=== PATIENT | male | born 1990 | race Caucasian/White ===

== ENCOUNTER 2018-08-07 04:03 | Inpatient (IN) ==
[2018-08-07 04:47] LABS: Baso % (Auto) 0.5 % (0.0-2.0); Eos # (Auto) 0.1 th/mm3 (0.0-0.4); Eos % (Auto) 1.2 % (0.0-4.0); Hematocrit 42.5 % (39.0-51.0); Hemoglobin 14.9 gm/dL (13.0-17.0); Lymph # (Auto) 1.6 th/mm3 (1.0-4.8); Lymph % (Auto) 24.1 % (9.0-44.0); Mean Corpuscular Hemoglobin 31.1 pg (27.0-34.0); Mean Platelet Volume 9.2 fL (7.0-11.0); Mono # (Auto) 0.7 th/mm3 (0.0-0.9); Mono % (Auto) 10.3 % (0.0-8.0); Neut # (Auto) 4.2 th/mm3 (1.8-7.7); Neut % (Auto) 63.9 % (16.0-70.0); Platelet Count 254 th/mm3 (150-450); Red Blood Count 4.78 mil/mm3 (4.50-5.90); Red Cell Distribution Width 13.9 % (11.6-17.2); White Blood Count 6.6 th/mm3 (4.0-11.0)
[2018-08-07 04:57] LABS: INR 1.1 Ratio
--- NOTE | 2018-08-07 05:05 | ED ---
HPI General Chief complaint: Overdose Stated complaint: Medical Time Seen by Provider: 08/07/18 04:13 Source: patient Mode of arrival: EMS Limitations: no limitations History of Present Illness HPI narrative: The patient is a 28 year old male who presents to the [facility] emergency department with a history of accidentally overdosing on heroin the patient reports that he had been doing well on Subutex, however a week ago he relapsed. He denies using more heroin than usual, however he was noted to be unresponsive, and ambulance services were called. The patient was noted to have pinpoint pupils and diminished respiratory rate. The patient was bagged while IV access was obtained in his left EJ and then the patient was given 0.8 mg of Narcan IV. The patient became more awake and alert. The patient in route to this facility had one episode of vomiting that consisted of bright red blood. The patient reports that recently he has been sick with an upper respiratory infection. He reports that other family members have had a similar illness. He denies having any chest pain, chest pressure, or shortness of breath associated with this. He denies having any vomiting or diarrhea prior to this. He denies having any blood in his stool or black or tarry stools. On review of systems otherwise, the patient denies having any known recent fevers, neck pain, abdominal pain, diarrhea, urinary symptoms, or neurologic symptoms. Related Data Home Medications Medication Instructions Recorded Confirmed buprenorphine HCl 8 mg SUBLINGUAL DAILY 08/07/18 08/07/18 Allergies Allergy/AdvReac Type Severity Reaction Status Date / Time No Known Allergies Allergy Verified 08/07/18 04:04 Review of Systems ROS: all other systems reviewed are negative [facility] Medical History Medical History Hepatitis C (Acute) Patient denies medical problems (Acute) Social History Social History Substance History: Active Abuse Smoking Status: Current every day smoker Tobacco Type: Cigarettes How Often Do You Have a Drink Containing Alcohol: Never Recent Travel in [facility] within the Last 8 Weeks: No Recent Out of Country Travel within the Last 8 Weeks: No Substance Abuse Detail Heroin: Substance Use Status: Active Methamphetamine: Substance Use Status: Active Immunization History Tetanus Immunization: Unsure Exam Narrative Exam Narrative: The patient on my arrival to the room is lying flat well and ultrasound-guided IVs being placed. The patient's O2 saturation on pulse oximetry on supplemental nasal cannula O2 is noted to be down into the 70s with a good waveform. The patient is awake and conversive. The patient appears to be in no respiratory distress. The patient was placed on a nonrebreather mask and his O2 saturation came up to 99-100%. Const General: cooperative, no acute distress and well developed Nutritional Appearance: well nourished Orientation: alert, awake and oriented x3 [facility] Head: normocephalic and atraumatic Nose: no nasal discharge and no epistaxis Mouth: moist mucous membranes Throat: posterior oropharynx normal and uvula midline Eyes Sclera: normal sclerae Pupils: PERRL Neck Neck: trachea midline and no JVD Resp Effort & Inspection: no use of accessory muscles Auscultation: no crackles, no rales and rhonchi (Scattered rhonchi that clear with coughing bilaterally.) Cardio Rate: tachycardic (Sinus tachycardia in the 1 teens, no pulse deficits to the extremities on simultaneous auscultation and palpation of his radial artery.) Rhythm: regular rhythm Heart Sounds: no murmurs GI Inspection: non-distended Palpation: soft, no hepatosplenomegaly, no guarding, not rigid and nontender Auscultation: normal bowel sounds Back/Spine/Pelvis Back: no CVA tenderness Skin General: dry skin (warm) Neuro General: alert, awake, oriented x3 and other (Grossly nonfocal.) Speech: speech normal Motor: no movement abnormalities noted Extrem General: normal to inspection (2+ pulses), no calf tenderness, no clubbing, no cyanosis and no edema Psych Mood: congruent mood Affect: normal affect Judgment: limited Course Initial Documented Vital Signs Temperature 98.4 F 08/07/18 04:04 Pulse Rate 117 H 08/07/18 04:04 Respiratory Rate 16 08/07/18 04:04 Blood Pressure 118/74 08/07/18 04:04 Pulse Oximetry 76 L 08/07/18 04:04 Last Documented Vital Signs Temperature 98.1 F 08/07/18 12:00 Pulse Rate 103 H 08/07/18 16:01 Respiratory Rate 29 H 08/07/18 16:01 Blood Pressure 133/82 08/07/18 16:01 Pulse Oximetry 95 08/07/18 16:01 Critical Care Time Critical Care Time: Yes Total Critical Care Time: 36 Attestation: Aggregate critical care time was 36 minutes. Time to perform other separately billable procedures was not included in the critical care time. My time did not include minutes spent treating any other patients simultaneously or on activities that did not directly contribute to the patient's treatment. The services I provided to this patient were to treat and/or prevent clinically significant deterioration that could result in: Respiratory failure, versus cardiovascular collapse, versus hypoxic brain injury I provided critical care services requiring my management, as noted below: Chart data review, documentation time, medication orders and management, vital sign assessments/reviewing monitor data, ordering and reviewing lab tests, ordering and interpreting/reviewing x-rays and diagnostic studies, care of the patient and discussion of the patient with the admitting physicians. Medical Decision Making MDM Narrative Medical decision making narrative: During the course of the patient's emergency department visit, the patient's history, examination, and differential diagnosis were reviewed with the patient. The patient was placed on a manager monitoring with oximetry and frequent blood pressure monitoring. The patient had IV access obtained and blood work sent for analysis. A diagnostic evaluation was started regarding the patient's accidental heroin overdose associated with hypoxemia on room air. The patient was initially provided supplemental oxygen by nonrebreather mask. The patient's O2 saturation quickly came up to 98-100% on nonrebreather. The patient was started on normal saline IV fluids. Diagnostic studies are remarkable for a normal white count of 6.6, hemoglobin 14.9, platelets 254 with 10.3 monocytes, PT PTT within normal limits, d-dimer is elevated at 6.5, CTA to rule out PE was ordered, chemistry is remarkable for potassium 3.2, creatinine 1.31, GFR 65, glucose 76, serum osmolality 307, magnesium 2.5, troponin I less than 0.02, lipase within normal limits, BNP within normal limits. Urine drug screen is positive for amphetamines. A chest x-ray reveals bilateral upper lobe consolidation, CTA to rule out PE shows no evidence of pulmonary embolism, dense airspace consolidation in bilateral upper lobes and the superior segment of both lower lobes. Given the patient's infiltrates on chest x-ray the patient was covered with Rocephin, Zithromax, and Flagyl for suspected possible aspiration. The patient was monitored closely for any recurrent declines and respiratory effort and rate or decrease in oxygenation. The patient's case including history, pertinent physical examination findings, and laboratory studies were discussed with Dr. Fernando, the polysomnography tech. It was agreed that the patient would be admitted to the polysomnography tech's service. The patient's results were discussed with the patient, including the plan of care. I explained that further testing and/ or monitoring is indicated based on the patient's history, examination, and/ or laboratory findings. Therefore, I recommended admission for additional evaluation. The patient expressed understanding and was agreeable with this plan. The patient was admitted to the hospital in guarded condition and sent to a bed under the care of the polysomnography tech's service. Medical Screen Exam Complete: Yes Emergency Medical Condition: Yes Differential Diagnosis Differential Diagnosis: Intentional versus unintentional overdose, versus noncardiogenic pulmonary edema, versus aspiration, versus pneumonia Medical Records Medical records reviewed: Yes I reviewed the patient's medical records. Lab Data Lab results reviewed: Yes I reviewed the patient's lab results. Result diagrams: 08/07/18 04:34 08/07/18 04:34 Lab Results 08/07/18 08/07/18 08/07/18 Range/Units 04:20 04:34 04:34 WBC 6.6 (4.0-11.0) th/mm3 RBC 4.78 (4.50-5.90) mil/mm3 Hgb 14.9 (13.0-17.0) gm/dL Hct 42.5 (39.0-51.0) % MCV 89.0 (80.0-100.0) fL MCH 31.1 (27.0-34.0) pg MCHC 35.0 (32.0-36.0) % RDW 13.9 (11.6-17.2) % Plt Count 254 (150-450) th/mm3 MPV 9.2 (7.0-11.0) fL Neut % (Auto) 63.9 (16.0-70.0) % Lymph % (Auto) 24.1 (9.0-44.0) % [place] % (Auto) 10.3 H (0.0-8.0) % Eos % (Auto) 1.2 (0.0-4.0) % Baso % (Auto) 0.5 (0.0-2.0) % Neut # (Auto) 4.2 (1.8-7.7) th/mm3 Lymph # (Auto) 1.6 (1.0-4.8) th/mm3 [place] # (Auto) 0.7 (0.0-0.9) th/mm3 Eos # (Auto) 0.1 (0.0-0.4) th/mm3 Baso # (Auto) 0.0 (0.0-0.2) th/mm3 WBC Differential . Differential Comment Auto diff final PT 11.0 (9.8-11.6) sec INR 1.1 Ratio APTT 26.0 (23.4-31.7) sec D-Dimer Quant (PE/DVT) (0.00-0.50) mg/L FEU Sodium (136-145) meq/L Potassium (3.5-5.1) meq/L Chloride (98-107) meq/L Carbon Dioxide (21.0-32.0) meq/L Anion Gap (5-15) meq/L BUN (7-18) mg/dL Creatinine (0.60-1.30) mg/dL Estimated GFR (>89) mL/min POC Glucose 80 (68-110) mg/dl Random Glucose (74-106) mg/dL Osmolality (275-295) mosm/kg Calcium (8.5-10.1) mg/dL Magnesium (1.5-2.5) mg/dL Total Bilirubin (0.2-1.0) mg/dL AST (15-37) U/L ALT (12-78) U/L Alkaline Phosphatase (45-117) U/L Troponin I (0.02-0.05) ng/mL B-Natriuretic Peptide (0-100) pg/mL Total Protein (6.4-8.2) g/dL Albumin (3.4-5.0) g/dL Lipase (73-393) U/L Nasal Screen MRSA (PCR) (Negative) Urine Opiates Screen (Neg) Ur Barbiturates Screen (Neg) Ur Amphetamines Screen (Neg) U Benzodiazepines Scrn (Neg) Urine Cocaine Screen (Neg) U Cannabinoids Screen (Neg) 08/07/18 08/07/18 08/07/18 Range/Units 04:34 04:34 04:34 WBC (4.0-11.0) th/mm3 RBC (4.50-5.90) mil/mm3 Hgb (13.0-17.0) gm/dL Hct (39.0-51.0) % MCV (80.0-100.0) fL MCH (27.0-34.0) pg MCHC (32.0-36.0) % RDW (11.6-17.2) % Plt Count (150-450) th/mm3 MPV (7.0-11.0) fL Neut % (Auto) (16.0-70.0) % Lymph % (Auto) (9.0-44.0) % [place] % (Auto) (0.0-8.0) % Eos % (Auto) (0.0-4.0) % Baso % (Auto) (0.0-2.0) % Neut # (Auto) (1.8-7.7) th/mm3 Lymph # (Auto) (1.0-4.8) th/mm3 [place] # (Auto) (0.0-0.9) th/mm3 Eos # (Auto) (0.0-0.4) th/mm3 Baso # (Auto) (0.0-0.2) th/mm3 WBC Differential Differential Comment PT (9.8-11.6) sec INR Ratio APTT (23.4-31.7) sec D-Dimer Quant (PE/DVT) 6.50 H (0.00-0.50) mg/L FEU Sodium 141 (136-145) meq/L Potassium 3.2 L (3.5-5.1) meq/L Chloride 103 (98-107) meq/L Carbon Dioxide 30.4 (21.0-32.0) meq/L Anion Gap 8 (5-15) meq/L BUN 11 (7-18) mg/dL Creatinine 1.31 H (0.60-1.30) mg/dL Estimated GFR 65 L (>89) mL/min POC Glucose (68-110) mg/dl Random Glucose 76 (74-106) mg/dL Osmolality 307 H (275-295) mosm/kg Calcium 8.9 (8.5-10.1) mg/dL Magnesium 2.5 (1.5-2.5) mg/dL Total Bilirubin 0.4 (0.2-1.0) mg/dL AST 21 (15-37) U/L ALT 29 (12-78) U/L Alkaline Phosphatase 74 (45-117) U/L Troponin I Less than 0.02 L (0.02-0.05) ng/mL B-Natriuretic Peptide (0-100) pg/mL Total Protein 9.0 H (6.4-8.2) g/dL Albumin 4.1 (3.4-5.0) g/dL Lipase 98 (73-393) U/L Nasal Screen MRSA (PCR) (Negative) Urine Opiates Screen (Neg) Ur Barbiturates Screen (Neg) Ur Amphetamines Screen (Neg) U Benzodiazepines Scrn (Neg) Urine Cocaine Screen (Neg) U Cannabinoids Screen (Neg) 08/07/18 08/07/18 08/07/18 Range/Units 04:34 08:15 13:15 WBC (4.0-11.0) th/mm3 RBC (4.50-5.90) mil/mm3 Hgb (13.0-17.0) gm/dL Hct (39.0-51.0) % MCV (80.0-100.0) fL MCH (27.0-34.0) pg MCHC (32.0-36.0) % RDW (11.6-17.2) % Plt Count (150-450) th/mm3 MPV (7.0-11.0) fL Neut % (Auto) (16.0-70.0) % Lymph % (Auto) (9.0-44.0) % [place] % (Auto) (0.0-8.0) % Eos % (Auto) (0.0-4.0) % Baso % (Auto) (0.0-2.0) % Neut # (Auto) (1.8-7.7) th/mm3 Lymph # (Auto) (1.0-4.8) th/mm3 [place] # (Auto) (0.0-0.9) th/mm3 Eos # (Auto) (0.0-0.4) th/mm3 Baso # (Auto) (0.0-0.2) th/mm3 WBC Differential Differential Comment PT (9.8-11.6) sec INR Ratio APTT (23.4-31.7) sec D-Dimer Quant (PE/DVT) (0.00-0.50) mg/L FEU Sodium (136-145) meq/L Potassium (3.5-5.1) meq/L Chloride (98-107) meq/L Carbon Dioxide (21.0-32.0) meq/L Anion Gap (5-15) meq/L BUN (7-18) mg/dL Creatinine (0.60-1.30) mg/dL Estimated GFR (>89) mL/min POC Glucose (68-110) mg/dl Random Glucose (74-106) mg/dL Osmolality (275-295) mosm/kg Calcium (8.5-10.1) mg/dL Magnesium (1.5-2.5) mg/dL Total Bilirubin (0.2-1.0) mg/dL AST (15-37) U/L ALT (12-78) U/L Alkaline Phosphatase (45-117) U/L Troponin I (0.02-0.05) ng/mL B-Natriuretic Peptide 8 (0-100) pg/mL Total Protein (6.4-8.2) g/dL Albumin (3.4-5.0) g/dL Lipase (73-393) U/L Nasal Screen MRSA (PCR) Not detected (Negative) Urine Opiates Screen Neg (Neg) Ur Barbiturates Screen Neg (Neg) Ur Amphetamines Screen Pos H (Neg) U Benzodiazepines Scrn Neg (Neg) Urine Cocaine Screen Neg (Neg) U Cannabinoids Screen Neg (Neg) Imaging Data Radiologist's impression: Chest X-Ray 08/07/18 04:24 CONCLUSION: Bilateral upper lobe consolidation. Chest CTA 08/07/18 05:40 CONCLUSION: 1. The study is negative for pulmonary embolism. 2. Dense airspace consolidation in bilateral upper lobes and in the superior segment of both lower lobes. ECG Data Attestation: I personally reviewed and interpreted this ECG as follows: Interpretation: The patient had an EKG done on arrival. The patient's EKG reveals a sinus tachycardia rate of 117, QRS duration 102 ms, QTC [address] segment elevation. Discharge Plan Discharge Disposition Patient Disposition: ED Admit(ED Internal Use Only) Discharge Order Discharge Orders: ED Use Only Admit Order (Routine); Ordered 08/07/18 Ordered By: Aylin Arevalo Discharge Details Diagnosis: Drug overdose, Bilateral pulmonary infiltrates on chest x-ray, Hypoxemia Physicians Team ED Provider: Aylin Arevalo Primary Care Provider: Primary Care Geoffrey,Tasha Attending Provider: Samantha Fernando Other Providers: Donnell Carpio Status ED Status: Left Department Discharge Information Discharge Date/Time: 08/07/18 08:06
[2018-08-07 05:10] LABS: Albumin 4.1 g/dL (3.4-5.0); Anion Gap 8 meq/L (5-15); Aspartate Aminotransferase 21 U/L (15-37); Blood Urea Nitrogen 11 mg/dL (7-18); Calcium 8.9 mg/dL (8.5-10.1); Carbon Dioxide 30.4 meq/L (21.0-32.0); Chloride 103 meq/L (98-107); Glomerular Filtration Rate 65 mL/min (>89); Glucose,Random 76 mg/dL (74-106); Lipase 98 U/L (73-393); Potassium 3.2 meq/L (3.5-5.1); Sodium 141 meq/L (136-145)
[2018-08-07 05:12] LABS: Alanine Aminotransferase 29 U/L (12-78)
[2018-08-07 05:15] LABS: Alkaline Phosphatase 74 U/L (45-117)
--- NOTE | 2018-08-07 05:15 | XR ---
EXAM DATE: 08/07/2018 5:07 AM EST AGE/SEX: 28 years / Male INDICATIONS: Cough. CLINICAL DATA: This is the patient's initial encounter. Patient reports that signs and symptoms have been present for 1 day and indicates a pain score of Nonresponsive. MEDICAL/SURGICAL HISTORY: Non-responsive. Non-responsive. COMPARISON: No prior exams available for comparison. FINDINGS: Abnormal. There are partially consolidative opacities in the upper lungs bilaterally measuring up to 11 cm in size on the right side and 9 cm in size on the left. The mid and lower lungs are clear. The heart is normal in size. Both hemidiaphragms well delineated. No evidence of pneumothorax. CONCLUSION: Bilateral upper lobe consolidation. Electronically signed by: Krishna Bailey MD Board Certified Radiologist 08/07/2018 5:13 AM EST
[2018-08-07] MEDS ORDERED: Azithromycin Inj 500 MG in Sodium Chlor 0.9% Inj 250 ML IV.SIG ONE (05:38)
[2018-08-07] MEDS ORDERED: Magnesium Sulfate Inj 4 GM in Sodium Chlor 0.9% Inj 92 ML IV.SIG PRN (06:03)
[2018-08-07] MEDS ORDERED: Potassium Chloride 25 MEQ Effervescent Tablet PO PRN (06:03)
[2018-08-07] MEDS ORDERED: Acetaminophen 325 MG Tablet PO PRN (06:03)
[2018-08-07] MEDS ORDERED: Potassium Phosphate Inj 30 MMOL in Sodium Chlor 0.9% Inj 250 ML IV.SIG PRN (06:03)
[2018-08-07] MEDS ORDERED: Sodium Phosphate Inj 30 MMOL in Sodium Chlor 0.9% Inj 250 ML IV.SIG PRN (06:03)
[2018-08-07] MEDS ORDERED: Naloxone Inj 0.4 MG/ML Vial IV.PUSH PRN (06:03)
[2018-08-07] MEDS ORDERED: Magnesium Oxide 400 MG Tablet PO PRN (06:03)
[2018-08-07] MEDS ORDERED: Bisacodyl 10 MG Supp RECTAL PRN (06:03)
[2018-08-07] MEDS ORDERED: Potassium Chlor 40 mEq Premix 40 MEQ/100 ML PIGGYBACK IV.SIG PRN ×2 (06:03)
[2018-08-07] MEDS ORDERED: Magnesium Sulfate Inj 2 GM in Sodium Chlor 0.9% Inj 96 ML IV.SIG PRN (06:03)
[2018-08-07] MEDS ORDERED: Potassium Phosphate 500 MG Soluble Tablet PO PRN ×2 (06:03)
[2018-08-07] MEDS ORDERED: Potassium Chlor 20 mEq Premix 20 MEQ/100 ML PIGGYBACK IV.SIG PRN ×2 (06:03)
--- NOTE | 2018-08-07 06:27 | P.HPCC ---
History of Present Illness Service: Critical care Primary Care Physician: Unknown Chief Complaint: Opiate overdose History of Present Illness: 28yM presenting via EMS for unintentional opiate overdose. The patient states that he injected heroin earlier this morning and the next thing he recalls after that is waking up in the ambulance. He denies suicide attempt or intentional self-harm. He was bradypneic and unresponsive on their arrival, given 0.8 mg narcan IV with rapid return to baseline mental status, and reportedly had 1 episode of vomiting prior to arrival. He had an initial pulse ox of 70s on arrival to the ED which improved with NRB. The patient was found to have extensive bilateral pulmonary infiltrates on CXR concerning for aspiration pneumonia vs possibly negative pressure pulmonary edema. Inpatient Certification: I certify that the inpatient services were ordered in accordance with Medicare regulations governing the order. This includes certification that hospital inpatient services are reasonable and necessary and in the case of services not specified as inpatient-only under 42 CFR 419.22(n), that they are appropriately provided as inpatient services in accordance to with the 2-midnight benchmark under 43 CFR 412.3(e) Estimated Total Length of Stay (Days): 3 Plans for Post Hospital Care: Home Review of Systems All other systems reviewed negative except as stated in HPI Constitutional: Denies fever(s) Ears, Nose, Mouth, and Throat: Denies nasal congestion Cardiovascular: Denies chest pain Respiratory: Reports cough, Denies shortness of breath Gastrointestinal: Reports vomiting, Denies nausea Genitourinary: Denies painful urination Musculoskeletal: Denies back pain Neurologic: Denies numbness PMFSH - History History Provided By: Patient - Medical History Medical History: Medical History (Last Reviewed 08/07/18 @ 06:18 by Samantha Fernando DO) Hepatitis C Patient denies medical problems - Social History I have reviewed the patient's Social History: Yes - Tobacco History Tobacco Use In Past 30 Days: Yes Smoking Status: Current every day smoker Tobacco Type: Cigarettes - Alcohol History How Often Do You Have a Drink Containing Alcohol: Never - Substance Use History Substance History: Active Abuse - Substance Use Type Heroin Status: Active Methamphetamine Status: Active - Travel History Recent Travel in the [place] Within the Last 8 Weeks: No Recent Travel Out of the Country Within the Last 8 Weeks: No - Immunization History Tetanus Immunization: Unsure Medications and Allergies Active Medications: Active Medications Acetaminophen (Tylenol) 650 mg PO Q6H PRN PRN Reason: PAIN 1-10 AND/OR FEVER >101F Al Hydroxide/Mg Hydroxide (Milk Of [place] Liq) 30 ml PO Q12H PRN PRN Reason: Mild Constipation Albuterol (Duoneb Neb (Prn)) 1 ampul NEB Q2HR NEB PRN PRN Reason: WHEEZING Albuterol (Duoneb Neb (Prn)) 1 ampul NEB Q4HR NEB XANDER Bisacodyl (Dulcolax Supp) 10 mg RECTAL DAILY PRN PRN Reason: SEVERE CONSITIPATION Chlorhexidine Gluconate (Chlorhexidine 2% Cloth) 3 pack TOPICAL DAILY@0400 XANDER Stop: 08/13/18 03:59 Chlorhexidine Gluconate (Chlorhexidine 2% Cloth) 3 pack TOPICAL DAILY@0400 PRN PRN Reason: Extra cloth needed Stop: 08/13/18 03:59 Enoxaparin Sodium (Lovenox Inj) 40 mg SQ Q24H XANDRE Famotidine (Pepcid) 20 mg PO BID XANDER Famotidine (Pepcid Pf Inj) 20 mg IV.PUSH Q12HR XANDER Azithromycin 500 mg/ Sodium (Chloride) 250 mls @ 250 mls/hr IV.SIG ONCE ONE Stop: 08/07/18 06:37 Metronidazole/Sodium Chloride (Flagyl 500 Mg Inj) 100 mls @ 100 mls/hr IV.SIG ONCE ONE Stop: 08/07/18 06:37 Magnesium Sulfate 4 gm/ Sodium (Chloride) 100 mls @ 50 mls/hr IV.SIG UNSCH PRN PRN Reason: For Magnesium 0.9 - 1.1 mg/dL Magnesium Sulfate 2 gm/ Sodium (Chloride) 100 mls @ 50 mls/hr IV.SIG UNSCH PRN PRN Reason: For Magnesium 1.2 - 1.6 mg/dL Sodium Chloride (Ns Inj) 1,000 mls @ 84 mls/hr IV.CONT .[id number] XANDER Potassium Chloride (Kcl 40 Meq Premix Inj) 40 meq in 100 mls @ 25 mls/hr IV.SIG Q2H PRN PRN Reason: For Potassium 2.8 - 3.2 mEq/L Potassium Chloride (Kcl 40 Meq Premix Inj) 40 meq in 100 mls @ 25 mls/hr IV.SIG UNSCH PRN PRN Reason: For Potassium 3.3 - 3.5 mEq/L Potassium Chloride (Kcl 20 Meq Premix Inj) 20 meq in 100 mls @ 50 mls/hr IV.SIG Q2H PRN PRN Reason: For Potassium 2.8 - 3.2 mEq/L Potassium Phosphate 30 mmol/ (Sodium Chloride) 260 mls @ 42 mls/hr IV.SIG UNSCH PRN PRN Reason: SEE LABEL COMMENTS Sodium Phosphate 30 mmol/ (Sodium Chloride) 260 mls @ 42 mls/hr IV.SIG UNSCH PRN PRN Reason: For Phosphorus < 2.5 mg/dL Potassium Chloride (Kcl 20 Meq Premix Inj) 20 meq in 100 mls @ 50 mls/hr IV.SIG Q2H PRN PRN Reason: For Potassium 3.3 - 3.5 mEq/L Clindamycin Phosphate 300 mg/ (Sodium Chloride) 102 mls @ 200 mls/hr IV.SIG Q8H XANDER Lactulose (Lactulose Liq) 30 ml PO DAILY PRN PRN Reason: SEVERE CONSITIPATION Magnesium Oxide (Mag-Ox) 800 mg PO UNSCH PRN PRN Reason: For Magnesium 1.2 - 1.6 mg/dL Naloxone HCl (Narcan Inj) 0.4 mg IV.PUSH Q3M PRN PRN Reason: RESPIRATORY RATE LESS THAN 10 Nicotine (Habitrol 21 Mg Patch.24 Hr) 1 patch T-DERMAL DAILY [facility] Ondansetron HCl (Zofran Inj) 4 mg IV.PUSH Q6H PRN PRN Reason: NAUSEA OR VOMITING Patch Removal (Remove Old Patch) 1 each T-DERMAL DAILY [facility] Potassium Bicarb/Potassium Chloride (K-Lyte Cl Eff) 50 meq PO UNSCH PRN PRN Reason: For Potassium 3.3 - 3.5 mEq/L Potassium Phosphate (K-Phos Original) 2,000 mg PO Q4H PRN PRN Reason: Phosphorus Less Than 2.5 mg/dL Potassium Phosphate (K-Phos Original) 2,000 mg PO UNSCH PRN PRN Reason: SEE LABEL COMMENTS Senna/Docusate Sodium (Henny-Colace) 1 tab PO BID [facility] Sennosides (Senokot) 17.2 mg PO Q12H PRN PRN Reason: Moderate Constipation Sodium Chloride (Ns Flush) 2 ml IV.FLUSH PRN PRN PRN Reason: FLUSH AFTER USING IV ACCESS Sodium Chloride (Ns Flush) 2 ml IV.FLUSH BID XANDER Sodium Chloride (Ns Flush) 2 ml IV.FLUSH PRN PRN PRN Reason: FLUSH AFTER USING IV ACCESS Allergies Allergy/AdvReac Type Severity Reaction Status Date / Time No Known Allergies Allergy Verified 08/07/18 04:04 Home Medications Medication Instructions Recorded Confirmed Type buprenorphine HCl 8 mg SUBLINGUAL DAILY 08/07/18 08/07/18 History Results - Labs CBC & Chem 7: 08/07/18 04:34 08/07/18 04:34 Labs: Short CBC 08/07/18 Range/Units 04:34 WBC 6.6 (4.0-11.0) th/mm3 Hgb 14.9 (13.0-17.0) gm/dL Hct 42.5 (39.0-51.0) % Plt Count 254 (150-450) th/mm3 BMP 08/07/18 04:34 Sodium 141 Potassium 3.2 L Chloride 103 Carbon Dioxide 30.4 BUN 11 Creatinine 1.31 H Calcium 8.9 Cardiac Enzymes 08/07/18 Range/Units 04:34 Troponin I Less than 0.02 L (0.02-0.05) ng/mL Liver Function 08/07/18 Range/Units 04:34 Total Bilirubin 0.4 (0.2-1.0) mg/dL AST 21 (15-37) U/L ALT 29 (12-78) U/L Alkaline Phosphatase 74 (45-117) U/L Albumin 4.1 (3.4-5.0) g/dL - Imaging Impressions Chest X-Ray 08/07/18 04:24 CONCLUSION: Bilateral upper lobe consolidation. Exam Vital signs: Vital Signs 08/07/18 04:04 08/07/18 04:18 08/07/18 04:24 Temperature 98.4 F Pulse Rate 117 H 126 H Respiratory Rate 16 14 Blood Pressure 118/74 Pulse Oximetry 76 L 100 99 08/07/18 06:01 Temperature Pulse Rate 105 H Respiratory Rate 14 Blood Pressure 113/66 Pulse Oximetry 98 Intake & Output 08/06/18 08/06/18 08/07/18 06:59 18:59 06:59 Weight 92.986 kg Narrative: GEN: Disheveled, sleepy but easily arousable to voice, no acute distress HEENT: NCAT, pupils 1-2 mm and reactive bilaterally NECK: Left-sided EJ IV present CARDIO: Borderline tachy, regular PULM: Coarse rhonchi bilaterally, no respiratory distress, current O2 sats 99% on NRB ABD/GI: Soft and non-tender in all quadrants EXT/MSK: No extremity trauma SKIN: Warm and well-perfused NEURO: RASS 0, GCS 14 ([id number]), answers questions appropriately, moves all extremities PSYCH: Calm affect Caprini VTE Risk Assessment Caprini VTE Risk Assessment: No/Low Risk (score <= 1) Caprini Risk Assessment Model: Point Value = 1 Point Value = 2 Point Value = 3 Point Value = 5 Age 41-60 Minor surgery BMI > 25 kg/m2 Swollen legs Varicose veins or History of unexplained or recurrent spontaneous Oral contraceptives or hormone replacement Sepsis (< 1 month) Serious lung disease, including pneumonia (< 1 month) Abnormal pulmonary function Acute myocardial infarction Congestive heart failure (< 1 month) History of inflammatory bowel disease Medical patient at bed rest Age 61-74 Arthroscopic surgery Major open surgery (> 45 min) Laparoscopic surgery (> 45 min) Malignancy Confined to bed (> 72 hours) Immobilizing plaster cast Central venous access Age >= 75 History of VTE Family history of VTE Factor V Leiden Prothrombin [id number] Lupus anticoagulant Anticardiolipin antibodies Elevated serum homocysteine Heparin-induced thrombocytopenia Other congenital or acquired thrombophilia Stroke (< 1 month) Elective arthroplasty Hip, pelvis, or leg fracture Acute spinal cord injury (< 1 month) Prophylaxis Regimen: Total Risk Factor Score Risk Level Prophylaxis Regimen 0-1 Low Early ambulation 2 Moderate Order ONE of the following: *Sequential Compression Device (SCD) *Heparin 5000 units SQ BID 3-4 Higher Order ONE of the following medications: *Heparin 5000 units SQ TID *Enoxaparin/Lovenox 40 mg SQ daily (WT < 150 kg, CrCl > 30 mL/min) *Enoxaparin/Lovenox 30 mg SQ daily (WT < 150 kg, CrCl > 10-29 mL/min) *Enoxaparin/Lovenox 30 mg SQ BID (WT < 150 kg, CrCl > 30 mL/min) AND/OR *Sequential Compression Device (SCD) 5 or more Highest Order ONE of the following medications: *Heparin 5000 units SQ TID (Preferred with Epidurals) *Enoxaparin/Lovenox 40 mg SQ daily (WT < 150 kg, CrCl > 30 mL/min) *Enoxaparin/Lovenox 30 mg SQ daily (WT < 150 kg, CrCl > 10-29 mL/min) *Enoxaparin/Lovenox 30 mg SQ BID (WT < 150 kg, CrCl > 30 mL/min) AND *Sequential Compression Device (SCD) Assessment and Plan - Assessment and Plan Plan: 28yM presenting with unintentional opiate overdose, hypoxia, bilateral pulmonary infiltrates NEURO: Opiate abuse/ overdose Tobacco use disorder * Narcan PRN * Hold suboxone until mental status is back to baseline * Nicotine patch ordered, counseled patient on importance of smoking cessation * Serial neuro exams CARDIO: * Continue cardiac monitoring PULM: Bilateral pulmonary infiltrates, suspected aspiration pneumonia Possible negative-pressure pulmonary edema * Supplemental O2 * Nebs scheduled and PRN * Antibiotics (rocephin, azithro, flagyl) * Incentive spirometry * Encourage deep coughing/ breathing * F/U CXR tomorrow * Observe for signs of respiratory depression F/E/N: High risk for aspiration * NPO until mental status is back to baseline * Maintenance IV fluids * ICU electrolyte protocol ID: Suspected aspiration pneumonia * Antibiotics as detailed above * Blood cultures * MRSA swab PROPHY: * SCDs, lovenox * PPI until tolerating PO OVERALL: This patient is critically ill with opiate overdose and suspected bilateral aspiration pneumonia vs pulmonary edema. He requires ICU level of care. Counseling/ Coordination of Care: This patient is critically ill with impairment of one or more vital organ systems with a high probability of imminent or life-threatening deterioration. High-complexity medical decision making was required to support vital organ function and/ or prevent deterioration in the patient's condition. Total critical care time spent is 40 minutes giving full attention to this patient. This includes examining the patient, gathering history from someone other than the patient (i.e. chart review), discussing the patient's care with other providers, ordering and interpreting radiologic studies, ordering and interpreting laboratory values, and documentation. Amount of time is separate from teaching, counseling the patient and/or family, and exclusive of procedures. Code Status: Full Discussed Condition With: Dr. Arevalo (ED physician)
--- NOTE | 2018-08-07 06:47 | CT ---
EXAM DATE: 08/07/2018 6:41 AM EST AGE/SEX: 28 years / Male INDICATIONS: Shortness of breath after overdose. CLINICAL DATA: This is the patient's initial encounter. Patient reports that signs and symptoms have been present for 1 day and indicates a pain score of 0/10. MEDICAL/SURGICAL HISTORY: Hepatitis C. None. RADIATION DOSE: 11.60 CTDI (mGy) COMPARISON: No prior exams available for comparison. TECHNIQUE: Volumetric scanning was performed using a multi-row detector CT scanner during bolus infu vladislav of 74 ml Omnipaque 350 (iohexol) nonionic water-soluble contrast as a single exam dose. The leonel a was post processed with a variety of visualization algorithms including full volume maximum intensi ty projection and sliding thin slab reformation. Using automated exposure control and adjustment of t he mA and/or kV according to patient size, radiation dose was kept as low as reasonably achievable to obtain optimal diagnostic quality images. DICOM format image data is available electronically for r eview and comparison. FINDINGS: Pulmonary Arteries: No filling defects are seen in the pulmonary arteries out to the subsegmental ve ssels. The left and right pulmonary arteries are normal in diameter. Lung: Dense consolidation involving both upper lobes sparing the periphery and in the superior segme nt of both lower lobes. Incidental note of azygous lobe. Effusion: None. Mediastinum: No evidence of mediastinal or hilar adenopathy. Other: The axilla is unremarkable. CONCLUSION: 1. The study is negative for pulmonary embolism. 2. Dense airspace consolidation in bilateral upper lobes and in the superior segment of both lower l obes. Electronically signed by: Krishna Bailey MD Board Certified Radiologist 08/07/2018 6:46 AM EST
[2018-08-07] MEDS: Sod Chloride 0.9% Inj 1,000 ML IV.CONT SCH ×2 (07:39→18:38)
[2018-08-07] MEDS: Famotidine PF Inj 20 MG/2 ML Vial IV.PUSH SCH ×2 (09:15→20:29)
[2018-08-07] MEDS: Enoxaparin Inj 40 MG/0.4 ML Syringe SQ SCH (09:15)
[2018-08-07] MEDS: Famotidine 20 MG Tablet PO SCH ×2 (09:16→20:29)
[2018-08-07] MEDS: Senna/Docusate Sodium 8.6/50 MG Tablet PO SCH ×2 (09:16→20:30)
--- NOTE | 2018-08-07 15:28 | ECG ---
Date Performed: 08/07/2018 Time Performed: 04:11:13 PTAGE: 28 years EKG: SINUS TACHYCARDIA ABNORMAL RHYTHM ECG NO PREVIOUS TRACING DOCTOR: Slade Gray Interpretating Date/Time 08/07/2018 15:21:52
[2018-08-07 15:48] LABS: Amphetamine Screen,Urine Pos (Neg); Barbiturate Screen,Urine Neg (Neg); Cannabinoid Screen,Urine Neg (Neg); Cocaine Screen,Urine Neg (Neg)
[2018-08-07 16:02] LABS: Opiate Screen,Urine Neg (Neg)
[2018-08-08] MEDS ORDERED: Chlorhexidine Gluconate 2% 1 Pack (2 Cloths) TOPICAL PRN (04:00)
[2018-08-08] MEDS: Chlorhexidine Gluconate 2% 1 Pack (2 Cloths) TOPICAL SCH (04:30)
[2018-08-08] MEDS: Azithromycin Inj 500 MG in Sodium Chlor 0.9% Inj 250 ML IV.SIG SCH (05:00)
--- NOTE | 2018-08-08 05:32 | XR ---
EXAM DATE: 08/08/2018 5:27 AM EST AGE/SEX: 28 years / Male INDICATIONS: Respiratory disease. CLINICAL DATA: This is the patient's subsequent encounter. Patient reports that signs and symptoms h ave been present for 2 days and indicates a pain score of 2/10. MEDICAL/SURGICAL HISTORY: Hepatitis C. Smoker. Hypoxemia. IVDU. None. [place] [facility] [place]. . FINDINGS: A single AP view of the chest demonstrates bilateral upper lobe airspace disease. The cardiomediastin al contours are unremarkable. Osseous structures are intact. CONCLUSION: Bilateral upper lobe airspace disease, slightly improved. Electronically signed by: Paramjit Bethea MD Board Certified Radiologist 08/08/2018 5:30 AM EST
[2018-08-08 05:39] LABS: Baso % (Auto) 0.3 % (0.0-2.0); Eos # (Auto) 0.1 th/mm3 (0.0-0.4); Eos % (Auto) 1.2 % (0.0-4.0); Hematocrit 31.8 % (39.0-51.0); Hemoglobin 11.2 gm/dL (13.0-17.0); Lymph # (Auto) 1.1 th/mm3 (1.0-4.8); Lymph % (Auto) 12.2 % (9.0-44.0); Mean Corpuscular HGB Conc 35.2 % (32.0-36.0); Mean Corpuscular Hemoglobin 31.1 pg (27.0-34.0); Mean Corpuscular Volume 88.3 fL (80.0-100.0); Mean Platelet Volume 9.4 fL (7.0-11.0); Mono # (Auto) 0.7 th/mm3 (0.0-0.9); Mono % (Auto) 7.6 % (0.0-8.0); Neut # (Auto) 7.1 th/mm3 (1.8-7.7); Neut % (Auto) 78.7 % (16.0-70.0); Platelet Count 190 th/mm3 (150-450); Red Blood Count 3.61 mil/mm3 (4.50-5.90); Red Cell Distribution Width 13.3 % (11.6-17.2)
[2018-08-08 06:06] LABS: Alanine Aminotransferase 17 U/L (12-78); Albumin 2.9 g/dL (3.4-5.0); Alkaline Phosphatase 52 U/L (45-117); Anion Gap 7 meq/L (5-15); Aspartate Aminotransferase 12 U/L (15-37); Blood Urea Nitrogen 8 mg/dL (7-18); Calcium 8.1 mg/dL (8.5-10.1); Carbon Dioxide 26.9 meq/L (21.0-32.0); Chloride 109 meq/L (98-107); Glomerular Filtration Rate Greater Than 89 mL/min (>89); Glucose,Random 94 mg/dL (74-106); Magnesium 2.2 mg/dL (1.5-2.5); Potassium 3.5 meq/L (3.5-5.1); Sodium 143 meq/L (136-145); Total Protein 6.5 g/dL (6.4-8.2)
[2018-08-08] MEDS: Senna/Docusate Sodium 8.6/50 MG Tablet PO SCH ×2 (08:05→20:57)
[2018-08-08] MEDS: Famotidine 20 MG Tablet PO SCH ×2 (08:05→20:57)
[2018-08-08] MEDS: Famotidine PF Inj 20 MG/2 ML Vial IV.PUSH SCH (08:05)
[2018-08-08] MEDS: Enoxaparin Inj 40 MG/0.4 ML Syringe SQ SCH (08:05)
[2018-08-08] MEDS: Sod Chloride 0.9% Inj 1,000 ML IV.CONT SCH ×2 (08:15→18:21)
--- NOTE | 2018-08-08 10:28 | P.PNIM ---
Subjective Interval history: f/u; pneumonia/ drug overdose in no acute distress. denies sob. no fever. has some abdominal pain and diarrhea. d/w the RN. Physical Exam Vital signs: Last Vital Signs Temp 99.2 F 08/08/18 08:00 Pulse 92 H 08/08/18 08:00 Resp 17 08/08/18 08:00 BP 141/78 H 08/08/18 08:00 Pulse Ox 98 08/08/18 08:00 Intake & Output 08/06/18 08/07/18 08/08/18 08/09/18 06:59 06:59 06:59 06:59 Intake Total 100 / 100 3860 / 3860 Output Total 3700 / 3700 Balance 100 / 100 160 / 160 Weight 92.986 kg 91.2 kg Constitutional no acute distress Routine Respiratory Exam Present CTA bilaterally Routine Cardiovascular Exam Present RRR Routine Abdominal Exam Present soft Routine Extremities Exam Comments: no pedal edema. Routine Neurological Exam Present alert and oriented X3 Results Labs CBC & Chem 7: 08/08/18 04:52 08/08/18 04:52 Imaging Imaging: Impressions Chest X-Ray 08/08/18 06:00 CONCLUSION: Bilateral upper lobe airspace disease, slightly improved. Assessment and Plan Plan Opiate abuse/ overdose Tobacco use disorder Narcan PRN Hold suboxone until mental status is back to baseline Nicotine patch ordered, counseled patient on importance of smoking cessation Serial neuro exams CARDIO: Continue cardiac monitoring PULM: Bilateral pulmonary infiltrates, suspected aspiration pneumonia Possible negative-pressure pulmonary edema Supplemental O2 Nebs scheduled and PRN Antibiotics (rocephin, azithro, flagyl) Incentive spirometry Encourage deep coughing/ breathing CXR today with mild improvement. Observe for signs of respiratory depression PROPHY: SCDs, lovenox PPI until tolerating PO Progress Note: Quality VTE Deep Vein Thrombosis/Pulmonary Embolism Present on Admission: Yes
[2018-08-09] MEDS: Sod Chloride 0.9% Inj 1,000 ML IV.CONT SCH ×3 (00:46→18:20)
[2018-08-09] MEDS: Chlorhexidine Gluconate 2% 1 Pack (2 Cloths) TOPICAL SCH (05:01)
[2018-08-09] MEDS: Azithromycin Inj 500 MG in Sodium Chlor 0.9% Inj 250 ML IV.SIG SCH (06:09)
[2018-08-09] MEDS: Famotidine 20 MG Tablet PO SCH ×2 (09:09→21:35)
[2018-08-09] MEDS: Senna/Docusate Sodium 8.6/50 MG Tablet PO SCH ×2 (09:09→21:35)
[2018-08-09] MEDS: Enoxaparin Inj 40 MG/0.4 ML Syringe SQ SCH (09:10)
--- NOTE | 2018-08-09 09:29 | P.PNIM ---
Subjective Interval history: f/u; pneumonia in no acute distress. on three liters of oxygen via N/C. no fever. overall looks and feels better today. Physical Exam Vital signs: Last Vital Signs Temp 97.9 F 08/09/18 04:00 Pulse 65 08/09/18 08:11 Resp 16 08/09/18 08:11 BP 117/61 08/09/18 04:00 Pulse Ox 94 L 08/09/18 08:11 Intake & Output 08/07/18 08/08/18 08/09/18 08/10/18 06:59 06:59 06:59 06:59 Intake Total 100 / 100 3860 / 3860 2660 / 2660 250 / 250 Output Total 3700 / 3700 1400 / 1400 Balance 100 / 100 160 / 160 1260 / 1260 250 / 250 Weight 92.986 kg 91.2 kg 92.7 kg Constitutional no acute distress Routine Respiratory Exam Present CTA bilaterally Routine Cardiovascular Exam Present RRR Routine Abdominal Exam Present soft Routine Extremities Exam Comments: no pedal edema. Routine Neurological Exam Present alert and oriented X3 Results Labs CBC & Chem 7: 08/08/18 04:52 08/08/18 04:52 Labs: Microbiology 08/07/18 06:20 Blood - Peripheral Aerobic Blood Culture - Preliminary No growth in 1 day 08/07/18 06:20 Blood - Peripheral Anaerobic Blood Culture - Preliminary No growth in 1 day 08/07/18 06:29 Blood - Peripheral Aerobic Blood Culture - Preliminary No growth in 1 day 08/07/18 06:29 Blood - Peripheral Anaerobic Blood Culture - Preliminary No growth in 1 day Assessment and Plan Plan Opiate abuse/ overdose Tobacco use disorder Narcan PRN Hold suboxone for now. Nicotine patch ordered, counseled patient on importance of smoking cessation Serial neuro exams Bilateral pulmonary infiltrates, suspected aspiration pneumonia Possible negative-pressure pulmonary edema Supplemental O2 Nebs scheduled and PRN Antibiotics (rocephin, azithro, flagyl) Incentive spirometry Encourage deep coughing/ breathing repeated CXR with mild improvement. will taper down the oxygen - to keep O2 sat . 90%. PROPHY: SCDs, lovenox Progress Note: Quality VTE Deep Vein Thrombosis/Pulmonary Embolism Present on Admission: Yes
[2018-08-10] MEDS: Azithromycin Inj 500 MG in Sodium Chlor 0.9% Inj 250 ML IV.SIG SCH (06:02)
[2018-08-10] MEDS: Chlorhexidine Gluconate 2% 1 Pack (2 Cloths) TOPICAL SCH (06:04)
[2018-08-10] MEDS: Sod Chloride 0.9% Inj 1,000 ML IV.CONT SCH (06:07)
--- NOTE | 2018-08-10 08:55 | P.PNIM ---
Subjective Interval history: f/u; pneumonia in no acute distress. off oxygen and looks comfortable. no fever. no new complaints. wants to go home. Physical Exam Vital signs: Last Vital Signs Temp 97.4 F L 08/10/18 04:00 Pulse 56 L 08/10/18 04:00 Resp 17 08/10/18 04:00 BP 137/71 08/10/18 04:00 Pulse Ox 96 08/10/18 04:00 Intake & Output 08/08/18 08/09/18 08/10/18 08/11/18 06:59 06:59 06:59 06:59 Intake Total 3860 / 3860 2660 / 2660 3330 / 3330 250 / 250 Output Total 3700 / 3700 1400 / 1400 600 / 600 Balance 160 / 160 1260 / 1260 2730 / 2730 250 / 250 Weight 91.2 kg 92.7 kg 91.9 kg Constitutional no acute distress Routine Respiratory Exam Present CTA bilaterally Routine Cardiovascular Exam Present RRR Routine Abdominal Exam Present soft Routine Extremities Exam Comments: no pedal edema. Routine Neurological Exam Present alert and oriented X3 Results Labs CBC & Chem 7: 08/08/18 04:52 08/08/18 04:52 Labs: Microbiology 08/07/18 06:20 Blood - Peripheral Aerobic Blood Culture - Preliminary No growth in 2 days 08/07/18 06:20 Blood - Peripheral Anaerobic Blood Culture - Preliminary No growth in 2 days 08/07/18 06:29 Blood - Peripheral Aerobic Blood Culture - Preliminary No growth in 2 days 08/07/18 06:29 Blood - Peripheral Anaerobic Blood Culture - Preliminary No growth in 2 days Assessment and Plan Plan A/P Opiate abuse/ overdose Tobacco use disorder Nicotine patch ordered, counseled patient on importance of smoking cessation Bilateral pulmonary infiltrates, suspected aspiration pneumonia/ Possible negative-pressure pulmonary edema clinically improved. stable off oxygen. change to oral augmentin repeated CXR with mild improvement. PROPHY: SCDs, lovenox Discharge Planning: dc home today. see med list. f/u; pcp. d/w the patient. Progress Note: Quality VTE Deep Vein Thrombosis/Pulmonary Embolism Present on Admission: Yes
--- NOTE | 2018-08-10 08:57 | P.DS ---
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 The patient states that he injected heroin earlier this morning and the next thing he recalls after that is waking up in the ambulance. He denies suicide attempt or intentional self-harm. He was bradypneic and unresponsive on their arrival, given 0.8 mg narcan IV with rapid return to baseline mental status, and reportedly had 1 episode of vomiting prior to arrival. He had an initial pulse ox of 70s on arrival to the ED which improved with NRB. The patient was found to have extensive bilateral pulmonary infiltrates on CXR concerning for aspiration pneumonia vs possibly negative pressure pulmonary edema. DS: Summary Opiate abuse/ overdose Tobacco use disorder Nicotine patch ordered, counseled patient on importance of smoking cessation Bilateral pulmonary infiltrates, suspected aspiration pneumonia/ Possible negative-pressure pulmonary edema clinically improved. stable off oxygen. change to oral augmentin repeated CXR with mild improvement. Time Spent with Patient Total time spent providing and/or coordinating discharge services: Less than 30 minutes Quality: VTE Deep Vein Thrombosis/Pulmonary Embolism Present on Admission: Yes Exam Narrative Exam Narrative: patient is in no acute distress. awake , alert and oriented. on lung exam; bilateral air entry present. abdomen is soft. no pedal edema. Results Procedures completed during hospitalization: none. Labs on day of discharge: Preliminary micro results at discharge 08/07/18 06:20 Aerobic Blood Culture - Preliminary Blood - Peripheral No growth in 2 days Anaerobic Blood Culture - Preliminary No growth in 2 days 08/07/18 06:29 Aerobic Blood Culture - Preliminary Blood - Peripheral No growth in 2 days Anaerobic Blood Culture - Preliminary No growth in 2 days Impressions ITS Impressions Chest CTA 08/07/18 05:40 CONCLUSION: 1. The study is negative for pulmonary embolism. 2. Dense airspace consolidation in bilateral upper lobes and in the superior segment of both lower lobes. Chest X-Ray 08/08/18 06:00 CONCLUSION: Bilateral upper lobe airspace disease, slightly improved. Discharge Plan Discharge Disposition Patient Disposition: 01 Discharge Home Discharge Condition Condition: Stable Discharge Order Discharge Orders: Discharge Order (Routine); Ordered 08/10/18 Ordered By: Vianney Combs Physicians Team Primary Care Provider: Primary Tasha Cheema Attending Provider: Vianney Combs Rxs /Orders / Referrals /Forms Prescriptions: New amoxicillin-pot clavulanate [Augmentin] 875-125 mg tablet 1 tab PO BID Qty: 10 RF: 0 Continue buprenorphine HCl 8 mg Tablet, Sublingual 8 mg SUBLINGUAL DAILY RF: 0 Referrals: Primary Care Tasha Hale [Primary Care Provider] - See Instructions (PLEASE MAKE A 1 WEEK FOLLOW UP APT WITH [facility] AT [phone] OR ANY CLINIC OF YOUR CHOICE) Discharge Instructions Patient Printed Instructions: Amoxicillin (By mouth), Narcotic Safety (ED), Opioid Withdrawal (DC) Status ED Status: Left Department Discharge Information Discharge Date/Time: 08/10/18 11:35
[2018-08-10] MEDS: Enoxaparin Inj 40 MG/0.4 ML Syringe SQ SCH (09:40)
[2018-08-10] MEDS: Famotidine 20 MG Tablet PO SCH (09:40)
[2018-08-10] MEDS: Senna/Docusate Sodium 8.6/50 MG Tablet PO SCH (09:40)
== END 2018-08-10 11:35 | disposition home or self-care (01) ==
LOC: NEPC 04:03 → NEDA 06:23 → HIMC 07:55 → N04 08-08 05:42
PROVIDERS: ADMIT Internal Medicine; ATTEND Internal Medicine